=== PATIENT | female | born 1990 ===

== ENCOUNTER 2017-11-14 09:12 | Emergency (ER) | payer OTHER ==
[~2017-11-14] VITALS: Ht 165.1 cm; Wt 90.0 kg
[2017-11-14 09:27] VITALS: BP 130/89; PULSE 81; RESP 17; TEMP 99.1; O2SAT 98
[2017-11-14] MEDS ORDERED: NEOM0.1S4 LEFT EYE (10:00)
--- NOTE | 2017-11-14 10:07 | PD ---
HPI Chief Complaint: Eye Problems/Injury Time Seen by Provider: 09:36 Travel History International Travel<30 days: No Contact w/Intl Traveler<30days: No Traveled to known affect area: No History of Present Illness HPI 27-year-old -[place] female presents emergency department with workplace injury to the left eye. Patient states she got some "air dry remover sprayed near her left eye". The patient flushed her eye for 5 minutes while at work. She is here for follow-up. She has no visual changes, but has burning in the left eye. Pain is 3 out of 10. She denies other injury. 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 She has no known drug allergies. [facility] Social History Alcohol Use: Yes Tobacco Use: No Substance Use: No Allergies-Medications (Allergen,Severity, Reaction): Coded Allergies: No Known Allergies (Unverified , 11/14/17) Reported Meds & Prescriptions Reported Meds & Active Scripts Active Ibuprofen 600 Mg Tab 600 Mg PO Q8H PRN Fctnyuow-Vbnptgicz-Hlkidaswtbewr Opth Drops 3.5-10,000-0.1 Mg-Units-% Susp 1 Drop LEFT EYE Q4H Review of Systems Except as stated in HPI: all other systems reviewed are Neg General / Constitutional: No: Fever Eyes: Positive: Redness, Pain, Tearing, No: Diploplia, Blurred Vision, Photophobia, Drainage, Foreign Body Sensation (Burning), Blind Spots, Visual changes, Blindness HENT: No: Headaches Cardiovascular: No: Chest Pain or Discomfort Respiratory: No: Shortness of Breath Gastrointestinal: No: Abdominal Pain Genitourinary: No: Dysuria Musculoskeletal: No: Pain Skin: No Rash Neurologic: No: Weakness Psychiatric: No: Depression Endocrine: No: Polydipsia Hematologic/Lymphatic: No: Easy Bruising Physical Exam Narrative GENERAL: Patient appears in mild distress. SKIN: Warm and dry. Normal color. Normal turgor. HEAD: Atraumatic. Normocephalic. EYES: Pupils equal and round. No scleral icterus. Left eye has moderate scleral injection. Wood's lamp exam with fluorescein is performed showing area of uptake in the medial lower sclera, without signs of corneal burn or abrasion. ENT: No nasal bleeding or discharge. Mucous membranes pink and moist. Pharynx is clear. Airways patent. NECK: Trachea midline. Supple and nontender. CARDIOVASCULAR: Regular rate and rhythm. RESPIRATORY: No accessory muscle use. Clear to auscultation. Breath sounds equal bilaterally. MUSCULOSKELETAL: Extremities without clubbing, cyanosis, or edema. No obvious deformities. NEUROLOGICAL: Awake and alert. No obvious cranial nerve deficits. Motor grossly within normal limits. Five out of 5 muscle strength in the arms and legs. Normal speech. PSYCHIATRIC: Appropriate mood and affect; insight and judgment normal. Data Data Last Documented VS Vital Signs Date Time Temp Pulse Resp B/P (MAP) Pulse Ox O2 Delivery O2 Flow Rate FiO2 11/14/17 09:27 99.1 81 17 130/89 (103) 98 Orders Orders Ed Discharge Order (11/14/17 10:08) MDM Medical Decision Making Medical Screen Exam Complete: Yes Emergency Medical Condition: Yes Differential Diagnosis Workplace injury. Chemical burn. Chemical conjunctivitis. Narrative Course Patient is medically stable at time of exam Dawson lamp exam with fluorescein dye shows injury to the sclera and conjunctiva but not cornea. Patient was given Cortisporin Ophthalmic drops to the left eye every 4 hours while awake for the next 5 days Patient given ibuprofen 600 mg 3 times daily #15. Workers comp form is completed with follow-up recommended with x ray equipment tester in 1 week Patient can return if symptoms worsen as needed. Diagnosis Primary Impression: Work related injury Additional Impression: Chemical conjunctivitis of left eye Referrals: Condominium Manager Patient Instructions: General Instructions Departure Forms: Tests/Procedures, Work Release Enter return to work date: Nov 16, 2017 Additional Instructions: Dawson lamp exam with fluorescein dye shows injury to the sclera and conjunctiva but not cornea. Patient was given Cortisporin Ophthalmic drops to the left eye every 4 hours while awake for the next 5 days Patient given ibuprofen 600 mg 3 times daily #15. Workers comp form is completed with follow-up recommended with x ray equipment tester in 1 week Patient can return if symptoms worsen as needed. Med/Other Pt SpecificInfo: Prescription(s) given Scripts Ibuprofen (Ibuprofen) 600 Mg Tab 600 MG PO Q8H Y for PAIN, #15 TAB 0 Refills Prov: Baldomero Caal MD 11/14/17 Gagcbjqj-Xaggapmoa-Okchhjvukfunl Opth Drops (Ywkmngsc-Lkdxfcbhp-Yccnlkglezsgr Opth Drops) 3.5-10,000-0.1 Mg-Units-% Susp 1 DROP LEFT EYE Q4H for Infection, #1 BOTTLE 0 Refills Prov: Baldomero Caal MD 11/14/17 Disposition: 01 DISCHARGE HOME Condition: Stable Chalo Ramos Nov 14, 2017 10:07
[2017-11-14] MEDS ORDERED: IBUP-232 PO (10:08)
== END 2017-11-14 10:22 | disposition home or self-care (01) ==
LOC: NEPK 09:12
DX: T65.891A Toxic effect of other specified substances, accidental (unintentional), initial encounter (principal); H10.212 Acute toxic conjunctivitis, left eye
CPT/HCPCS: 99283